=== PATIENT | female | born 1940 | race Caucasian/White ===

== ENCOUNTER 2018-06-04 07:34 | Day surgery (SDC) | payer MEDICARE, OTHER ==
[~2018-06-04] VITALS: Ht 162.6 cm; Wt 47.6 kg
[~2018-06-04 07:34] MED LIST: OCUVTAB4 PO; PARO20TA4 PO
[2018-06-04] MEDS ORDERED: ceFAZolin 1GM INJ (J0690 PER 500MG) As Ordered ONE (08:07)
[2018-06-04] MEDS ORDERED: LIDOCAINE 2% INJ 100 MG/5 ML SDV (FOR ANES.) As Ordered ONE (08:09)
[2018-06-04] MEDS ORDERED: ONDANSETRON 4MG/2ML VIAL (J2405) As Ordered ONE (08:09)
[2018-06-04] MEDS ORDERED: PROPOFOL 200 MG/20 ML VIAL As Ordered ONE ×2 (08:09→10:02)
[2018-06-04] MEDS ORDERED: dexameTHASONE 4 MG/ML 1ML VIAL (J1100) As Ordered ONE (08:09)
[2018-06-04] MEDS ORDERED: KETOROLAC 60 MG/2 ML VIAL (J1885) As Ordered ONE (08:09)
[2018-06-04] MEDS ORDERED: MIDAZOLAM INJ 2 MG/2 ML VIAL (J2250) As Ordered ONE (08:09)
[2018-06-04] MEDS ORDERED: fentaNYL 100 MCG/2 ML INJECTION (J3010) As Ordered ONE (08:10)
[2018-06-04] MEDS ORDERED: PHENYLephrine HCL 500 MCG/5 ML (100MCG/ML) SYRINGE (J2370) As Ordered ONE (09:49)
[2018-06-04] MEDS ORDERED: LIDOCAINE W/EPINEPHRINE 1% 20ML VIAL As Ordered ONE (09:53)
[2018-06-04] MEDS ORDERED: ROCURONIUM BROMIDE 50 MG/5 ML VIAL As Ordered ONE (10:01)
[2018-06-04] MEDS ORDERED: BACITRACIN PWD 50,000 UNITS VIAL As Ordered ONE (10:05)
[2018-06-04] MEDS ORDERED: ePHEDrine SULFATE 25 MG/5 ML(5MG/ML) SYRINGE As Ordered ONE (10:27)
--- NOTE | 2018-06-04 11:25 | POST-OPPD ---
Postoperative Procedure Note Date Of Procedure: Jun 04, 2018 PREOPERATIVE DIAGNOSIS: Left lower leg malignant lesion POSTOPERATIVE DIAGNOSIS: same FINDINGS: malignant lesion left lower leg 3x3.5cm PROCEDURE: Excision malignant lesion left lower leg with skin graft closure. Donor site left lower abdomen. SURGEON: Dr Ramirez ANESTHESIA: General SPECIMENS: 1. Left lower leg malignant lesion FS, suture at 12 o'clock, 2. Additional deep margin FS, 3. Additional deep margin 9-12 o'clock. ESTIMATED BLOOD LOSS: 5cc REPLACED: none DRAINS: none COMPLICATIONS: none POSTOPERATIVE CONDITION: stable RADHA RAMIREZ DO Jun 04, 2018 11:25
[2018-06-04] MEDS ORDERED: fentaNYL 100 MCG/2 ML INJECTION (J3010) IV PRN (12:00)
[2018-06-04] MEDS ORDERED: ACETAMINOPH W/CODEINE #3 TAB UD PO PRN (12:00)
[2018-06-04] MEDS ORDERED: HYDROMORPHONE HCL 0.5 MG/ 0.5 ML SYRINGE (J1170 PER 1) IV PRN (12:00)
[2018-06-04] MEDS ORDERED: ONDANSETRON 4MG/2ML VIAL (J2405) IV PRN (12:00)
[2018-06-04] MEDS: LR 1,000 ML IV SCH (12:23)
[2018-06-04 12:30] VITALS: BP 123/71
[2018-06-04 13:00] VITALS: BP 132/68
[2018-06-04 14:00] VITALS: BP 126/72
[2018-06-04 15:00] VITALS: BP 117/68
[2018-06-04 16:00] VITALS: BP 106/55
[2018-06-04] MEDS: ceFAZolin SOD 1 GM in D5W MINI-BAG PLUS 50 ML IV SCH (16:32)
[2018-06-04 22:00] VITALS: BP 116/75
[2018-06-05] MEDS: ceFAZolin SOD 1 GM in D5W MINI-BAG PLUS 50 ML IV SCH ×2
[2018-06-05 02:00] VITALS: BP 105/62
[2018-06-05 06:00] VITALS: BP 120/71
--- NOTE | 2018-06-05 07:26 | IPNPDOC ---
Subjective General Date/Time Seen The patient was seen on 06/05/18 at 07:24. Subject Chief Complaint/History The patient is a 78-year-old female admitted with a reason for visit of Squamous Cell Carcinoma Left Lower Leg excision with skin graft placement. POD 1. Doing well. Current Medications Current Medications Current Medications Acetaminophen/ Codeine Phosphate (Tylenol/Codeine #3 Tablet) 1 ea Q4H PRN PO PAIN; Start 06/04/18 at 12:00 Cefazolin Sodium 1 gm/Dextrose 50 ml @ 100 mls/hr Q8H IV Last administered on 06/05/18at 00:00; Start 06/04/18 at 16:00; Stop 06/05/18 at 00:29; Status DC Fentanyl Citrate (Sublimaze) 25 mcg Q5MP PRN IV MODERATE PAIN (PS 4-7); Start 06/04/18 at 12:00; Stop 06/04/18 at 13:00; Status DC Hydromorphone HCl (Dilaudid) 0.5 mg Q15M PRN IV MODERATE/SEVERE PAIN (PS 5-10); Start 06/04/18 at 12:00 Lactated Ringer's 1,000 ml @ 50 mls/hr Q20H IV Last administered on 06/04/18at 12:23; Start 06/04/18 at 12:00 Ondansetron HCl (ZOFRAN INJection) 4 mg Q6H PRN IV NAUSEA; Start 06/04/18 at 12:00 Allergies Coded Allergies: Sulfa Drugs (Unverified Allergy, Unknown, 05/21/18) Sulfa Drugs Cross Reactors (Unverified Allergy, Unknown, 05/21/18) Objective Physical Examination Examination GENERAL APPEARANCE:Patient seen, laying in bed, awake, alert, and oriented. Comfortable, in no acute distress. SKIN: Warm and moist. Donor site left lower abdomen incision intact. Recipient site left LE, dressing in place. HEENT: Normocephalic, atraumatic. [place] palpebral conjunctiva, anicteric sclerae. Lips and mucosa appear moist. NECK: Supple, no thyromegaly. No obvious jugular venous distention. LUNGS: Clear to auscultation bilaterally. No wheezing appreciated. HEART: No chest wall abnormalities. Regular rate and rhythm with no murmurs appreciated. ABDOMEN: Abdomen soft NT/ND. Incision intact. Vital Signs Vital Signs Date Time Temp Pulse Resp B/P (MAP) Pulse Ox O2 Delivery O2 Flow Rate FiO2 06/05/18 06:00 98.0 80 16 120/71 (87) 96 I&Os I&O- Last 24 Hours up to 6 AM 06/05/18 06:00 Intake Total 2120 ml Output Total 450 ml Balance 1670 ml Impression Left lower leg SCC. S/p excision and skin graft coverage. Stable Pain controlled D/c home today. Limited motion of the left leg. Plan to remove bolster in 7 days. F/up plastic surgery 1 week Plan / VTE VTE Prophylaxis Ordered?: Yes RADHA RAMIREZ DO Jun 05, 2018 07:26
[2018-06-05] MEDS ORDERED: ACET30TAB PO (07:28)
[2018-06-05] MEDS: LR 1,000 ML IV SCH (08:00)
--- NOTE | 2018-06-05 11:05 | RO ---
DATE OF OPERATION: 06/04/2018 PREOPERATIVE DIAGNOSIS: Left lower leg malignant lesion. POSTOPERATIVE DIAGNOSIS: Left lower leg malignant lesion. PROCEDURE: Excision malignant lesion left lower leg with skin graft closure. Donor site was left lower abdomen. ATTENDING SURGEON: Tejal Villa DO ANESTHESIA: General. SPECIMENS SENT: As follows: 1. Left lower leg malignant lesion, frozen section, suture marking 12 o'clock. 2. Additional deep margin, frozen section. 3. Additional deep margin from 9 o'clock to 12 o'clock, frozen section. BLOOD LOSS: 5 mL. No replacement needed. No drains. No complications. DESCRIPTION OF PROCEDURE: This is a 78-year-old female who presents in our office with a large fungating lesion on her left lower extremity, which the patient saying rapidly start to grow in the past month or so. No active bleeding. The patient is scheduled to have this lesion removed. It is at the lower anterior leg right over the cordova with minimal skin viability there; and for closure, we proposed the patient with a skin graft closure, full thickness, and the patient agrees. The risks and benefits and alternatives of the procedure discussed with the patient at length on the day of surgery. Informed consent confirmed. The patient is ready to proceed. DESCRIPTION OF PROCEDURE: She was brought in to the operating room and placed in supine position. Sequential stockings placed on the lower right leg. Preoperative antibiotics are given. She was prepped and draped in the usual sterile fashion. We prepped out the left lower leg and the left lower abdomen that is going to be used as a donor site. We started our procedure by outlining the lesion with 6-mm margins and started our incision. The specimen is marked with a suture at 12 o'clock, was completely removed in its full thickness and through the fascia. There appears to be involvement of the lesion, so the main lesion is sent out. There is questionable tissue in the middle of the deep margin, which was also tangentially resected and sent off frozen section, and then additional margin needed per pathology, and we sent an additional margin between 9 o'clock and 12 o'clock on a deep section, as well, which came back clear. After all the clear margins were confirmed, the wound is irrigated, hemostasis obtained, and then we harvested the graft from the left lower abdomen which would match by skin in the left lower extremity. The graft was harvested, and then it was defatted and sutured in place with 4-0 chromic sutures into the defect of the left lower extremity, which is totaling at this point 4 x 4.5 cm. The lesion before the excision, the lesion itself was 3 x 3.5 cm of the full excisions and with margins we end up with 4 x 4.5 cm open wound. The donor site was closed in layers with interrupted 3-0 Monocryl sutures and 4-0 Monocryl sutures. Covered with Steri-Strips and gauze, and the dressing was created for the graft, after was sutured in, and they were sutured in with 4-0 nylon sutures with a Xeroform and a gauze. Compression dressing is placed in the left lower extremity, as well The patient is extubated in the operating room without any difficulties and transferred to the recovery room in stable condition.
== END 2018-06-05 09:54 | disposition home or self-care (01) ==
LOC: M SDC 07:34 → M MS5PR 12:15 → M SDC 06-05 09:54
PROVIDERS: ATTEND Plastic Surgery Surgery of the Hand
DX: C44.729 Squamous cell carcinoma of skin of left lower limb, including hip (principal); E78.2 Mixed hyperlipidemia; F41.9 Anxiety disorder, unspecified; I48.2 Chronic atrial fibrillation; Z88.2 Allergy status to sulfonamides; Z78.0 Asymptomatic menopausal state; Z79.899 Other long term (current) drug therapy
CPT/HCPCS: 11606; 15110; 88305; 88331; 88332; J0690; J1100; J1885; J2250; J2370; J2405; J3010

== ENCOUNTER → 2020-01-25 | Outpatient (REF) | payer MEDICARE, OTHER, BC ==
[~2020-01-25] MED LIST changes: +ACET-716 PO
== END ==
LOC: M LAB REF 17:07
PROVIDERS: ATTEND Dermatology
DX: C44.722 Squamous cell carcinoma of skin of right lower limb, including hip (principal)

== ENCOUNTER → 2020-03-15 | Outpatient (REF) | payer MEDICARE, OTHER, BC | LOC: M LAB REF 14:49 | PROVIDERS: ATTEND Dermatology | DX: L57.0 Actinic keratosis (principal) ==

== ENCOUNTER 2024-03-16 11:08 | Day surgery (SDC) | payer MEDICARE, BC ==
[~2024-03-16] VITALS: Ht 160 cm; Wt 48.1 kg
[~2024-03-16 11:08] MED LIST changes: +ALEN70TA82 PO; +LR 1,000 ML IV SCH; +PRES1CAP PO
[2024-03-16] MEDS: CYCLOPENTOLATE 1% OPHTH SOLN 2ML BTL OS SCH (12:08)
[2024-03-16] MEDS: FLURBIPROFEN 0.03% OPHTH SOLN 2.5 ML OS SCH (12:08)
[2024-03-16] MEDS: TETRACAINE 0.5% OPHTH SOLN 4ML OS SCH (12:08)
[2024-03-16] MEDS: PHENYLEPHRINE 2.5% OPHTH SOL 2ML OS SCH (12:08)
[2024-03-16] MEDS ORDERED: MIDAZOLAM INJ 2MG/2ML VIAL As Ordered ONE (13:24)
[2024-03-16] MEDS ORDERED: fentaNYL 100 MCG/2 ML INJECTION As Ordered ONE (13:25)
[2024-03-16] MEDS: CEFUROXIME 1MG/0.1ML INTRACAMERAL INJ As Ordered ONE (13:36)
[2024-03-16] MEDS: LIDOCAINE 1% SDV 5ML VIAL As Ordered ONE (13:36)
[2024-03-16 13:50] VITALS: BP 145/80; TEMP 97.8; O2SAT 97
== END 2024-03-16 14:11 | disposition home or self-care (01) ==
LOC: M SDC 11:08
PROVIDERS: ATTEND Ophthalmology
DX: H25.9 Unspecified age-related cataract (principal); M81.0 Age-related osteoporosis without current pathological fracture; Z79.899 Other long term (current) drug therapy; Z88.2 Allergy status to sulfonamides
CPT/HCPCS: 66984; J0697; J2250; J3010; V2632

== ENCOUNTER → 2024-06-10 | Outpatient (REF) | payer MEDICARE, BC ==
[~2024-06-10] MED LIST changes: -LR 1,000 ML IV SCH
== END ==
LOC: M SFHCDERM 17:35
PROVIDERS: ATTEND Physician Assistant
DX: C44.311 Basal cell carcinoma of skin of nose (principal)

== ENCOUNTER 2024-07-13 12:40 | Day surgery (SDC) | payer MEDICARE, BC ==
[~2024-07-13] VITALS: Ht 160 cm; Wt 49.1 kg
[~2024-07-13 12:40] MED LIST changes: +LR 1,000 ML IV SCH; +MIDAZOLAM INJ 2MG/2ML VIAL As Ordered ONE
[2024-07-13] MEDS: CYCLOPENTOLATE 1% OPHTH SOLN 2ML BTL OD SCH (14:07)
[2024-07-13] MEDS: FLURBIPROFEN 0.03% OPHTH SOLN 2.5 ML OD SCH (14:07)
[2024-07-13] MEDS: PHENYLEPHRINE 2.5% OPHTH SOL 2ML OD SCH (14:07)
[2024-07-13] MEDS: TETRACAINE 0.5% OPHTH SOLN 4ML OD SCH (14:08)
[2024-07-13] MEDS: CEFUROXIME 1MG/0.1ML INTRACAMERAL INJ As Ordered ONE (15:44)
[2024-07-13] MEDS: LIDOCAINE 1% SDV 5ML VIAL As Ordered ONE (15:44)
[2024-07-13 15:55] VITALS: BP 142/72; TEMP 97; O2SAT 96
== END 2024-07-13 16:15 | disposition home or self-care (01) ==
LOC: M SDC 12:40
PROVIDERS: ATTEND Ophthalmology
DX: H25.11 Age-related nuclear cataract, right eye (principal); Z88.2 Allergy status to sulfonamides; Z79.899 Other long term (current) drug therapy
CPT/HCPCS: 66984; J0697; J2250; V2632

== ENCOUNTER → 2025-01-27 | Outpatient (REF) | payer MEDICARE, BC ==
[~2025-01-27] MED LIST changes: -LR 1,000 ML IV SCH; -MIDAZOLAM INJ 2MG/2ML VIAL As Ordered ONE
[2025-01-30 20:08] LABS: LYME TOTAL ANTIBODY CIA 1.14 Index (<=0.90)
[2025-01-30 22:32] LABS: LYME AB IGG BY CIA <= 0.90 Index (<=0.90); LYME AB IGM BY CIA <= 0.90 Index (<=0.90)
[2025-01-31 14:13] LABS: BORRELIA SPECIES DNA NOT DETECTED (NOT DETECT)
== END ==
LOC: M LAB REF 12:22
PROVIDERS: ATTEND Nurse Practitioner Adult Health
DX: Z11.59 Encounter for screening for other viral diseases (principal)